=== PATIENT | female | born 1970 | race Caucasian/White ===

== ENCOUNTER 2018-12-01 08:04 | Emergency (ER) | payer SELFPAY ==
[~2018-12-01] VITALS: Ht 154.9 cm; Wt 165.2 kg
[~2018-12-01 08:04] MED LIST: ALBU8.5H2 IH; ESCI5TAB PO; FLUT1DIS2 IH; FURO20TA PO; FURO20TA4 PO; LISI1TAB10 PO; LISI1TAB6 PO; META800T5 PO; NAPR220T29 PO; OMEG-79 PO; OMEG-82 PO; PHEN200T27 PO; PHEN37.555 PO; POTA99TA15 PO; TOPI25CA6 PO; TPR25T PO
--- NOTE | 2018-12-01 08:38 | NUR ---
ATTEMPTED TO BRING PATIENT BACK HOWEVER WAS IN THE BATHROOM
[2018-12-01] MEDS ORDERED: HYDROcodone/APAP 5 MG/325 MG (LORTAB) TAB PO ONE (09:15)
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
--- NOTE | 2018-12-01 09:46 | Diagnostic Imaging Report ---
INDICATION: Left knee pain post fall AP, oblique, and lateral views of the left knee are obtained. No fracture or acute bony abnormality seen. There is degenerative change of the patellofemoral joint with osteophyte formation. There is medial and lateral joint space narrowing with osteophyte formation. IMPRESSION: Osteoarthritic changes of left knee with no acute bony abnormality. Dictated by: Dictated on workstation # [id number]
[2018-12-01] MEDS ORDERED: ACHD5005 PO (10:18)
[2018-12-01 10:25] VITALS: BP 127/72
--- NOTE | 2018-12-01 10:25 | NUR ---
LEFT KNEE WRAPPED IN NASH BANDAGE
[2018-12-01] MEDS ORDERED: FLUC100T PO (10:26)
== END 2018-12-01 10:25 | disposition home or self-care (01) ==
LOC: EDUNIT# 08:04 → ER 08:07
DX: M25.562 Pain in left knee (principal); J45.909 Unspecified asthma, uncomplicated; I10 Essential (primary) hypertension; G40.909 Epilepsy, unspecified, not intractable, without status epilepticus; K21.9 Gastro-esophageal reflux disease without esophagitis; F41.9 Anxiety disorder, unspecified; F32.9 Major depressive disorder, single episode, unspecified; Z87.442 Personal history of urinary calculi; Z77.22 Contact with and (suspected) exposure to environmental tobacco smoke (acute) (chronic); Z88.1 Allergy status to other antibiotic agents; Z82.49 Family history of ischemic heart disease and other diseases of the circulatory system; W01.0XXA Fall on same level from slipping, tripping and stumbling without subsequent striking against object, initial encounter; Y93.01 Activity, walking, marching and hiking
CPT/HCPCS: 73562

== ENCOUNTER 2021-06-01 04:57 | Emergency (ER) | payer SELFPAY ==
[~2021-06-01] VITALS: Ht 155 cm; Wt 172.0 kg
[~2021-06-01 04:57] MED LIST changes: +ACHD5005 PO; +FLUC100T PO
[2021-06-01] MEDS ORDERED: METF-397 PO (05:17)
[2021-06-01] MEDS ORDERED: KETOROLAC 60 MG/2 ML VIAL IM ONE (05:45)
[2021-06-01] MEDS ORDERED: ORPHENADRINE 60 MG/2 ML (NORFLEX) AMP (ED ONLY) IM ONE (05:45)
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
[2021-06-01 05:52] LABS: BILIRUBIN,URINE NEGATIVE (NEGATIVE); CLARITY,URINE SL CLOUDY; COLOR,URINE YELLOW; GLUCOSE, URINE (UA) NEGATIVE (NEGATIVE); KETONES,URINE NEGATIVE (NEGATIVE); LEUKOCYTE ESTERASE ,URINE NEGATIVE (NEGATIVE); NITRITE,URINE POSITIVE (NEGATIVE); PH,URINE 5.5 (5-9); PROTEIN,URINE TRACE (NEGATIVE)
[2021-06-01 06:00] LABS: BACTERIA,URINE MODERATE /HPF; HYALINE CASTS, URINE 0-2 /LPF
[2021-06-01 06:07] LABS: HCG,QUALITATIVE URINE NEGATIVE (NEGATIVE)
[2021-06-01 06:09] LABS: AMPHETAMINE SCREEN, URINE NEGATIVE (NEGATIVE); BARBITURATE SCREEN URINE NEGATIVE (NEGATIVE); BENZODIAZEPINES SCREEN URINE NEGATIVE (NEGATIVE); CANNABINOID SCREEN, URINE NEGATIVE (NEGATIVE); COCAINE SCREEN URINE NEGATIVE (NEGATIVE); METHADONE STAT NEGATIVE (NEGATIVE); METHAMPHETAMINE SCREEN URINE S NEGATIVE (NEGATIVE); OPIATE SCREEN URINE NEGATIVE (NEGATIVE); OXYCODONE STAT NEGATIVE (NEGATIVE); PROPOXYPHENE STAT NEGATIVE (NEGATIVE); TRICYCLIC ANTIDEPRESSANTS SCRE NEGATIVE (NEGATIVE)
--- NOTE | 2021-06-01 06:27 | Diagnostic Imaging Report ---
PROCEDURE: CT thoracic and lumbar spine without contrast. TECHNIQUE: Multiple contiguous axial images were obtained through the thoracic and lumbar spine without the use of intravenous contrast. Sagittal and coronal reformations were then performed. All CT scans use one or more of the following dose optimizing techniques: automated exposure control, MA and/or KvP adjustment based on a patient size and exam type, or iterative reconstruction. INDICATION: Low back pain. Lower rib pain. Fall one week ago. COMPARISON: None. FINDINGS: Examination mildly limited by tube current verses body mass. Normal alignment. Vertebral body heights appear preserved. Moderate degenerative endplate changes at L5-S1. No high-grade spinal canal stenosis is evident on soft tissue windows. No fractures. Visualized pelvis is intact. Moderate degenerative changes in the sacroiliac joints. Visualized paravertebral soft tissues are unremarkable. IMPRESSION: No acute CT findings in the thoracic or lumbar spine. Dictated by: Dictated on workstation # [id number]
--- NOTE | 2021-06-01 06:53 | Diagnostic Imaging Report ---
Clinical indications: Patient complains of lower back and lower rib pain status post fall approximately a week ago from standing position. Patient reports pain worse since 0300. Patient has history of cholecystectomy. Exam: CT exam of the abdomen and pelvis is performed without IV or oral contrast using stone protocol. Coronal and sagittal reformatted images were created. Auto Exposure Controls were utilized during the CT exam to meet ALARA standards for radiation dose reduction. Comparisons: None. Findings: Visualized lung bases are clear. There are degenerative spurs involving both acetabular regions. There are degenerative spurs involving the visualized lower thoracic spine and lumbar spine. There is no acute lumbar spine fracture. There is no fracture in the visualized portions of the lower thoracic spine, sacrum, pelvis, or both hips. The extra-abdominal and extrapelvic soft tissue structures are unremarkable. The liver is enlarged measuring 20 cm in craniocaudal dimension. Otherwise, the liver, spleen, pancreas and adrenal glands are unremarkable. The gallbladder is not visualized. It may be completely contracted versus surgically absent. There are no surgical clips seen in the gallbladder fossa region. Both kidneys are unremarkable with no hydronephrosis, stones, or visible mass on this noncontrasted exam. Bladder is partially fluid-filled and grossly unremarkable as visualized. The uterus and bilateral adnexal structures are unremarkable. There is no intra-abdominal free air or free fluid. There is no intestinal obstruction. The stomach, small bowel, and colon show no significant abnormality. There is no intestinal obstruction. The appendix is unremarkable. There is no lymphadenopathy. IMPRESSION: 1: There is no CT evidence of acute abdominal pelvic process. There are no fractures involving the visualized portions of the ribs, thoracic spine, lumbar spine, pelvis, sacrum, or hips. 2: Hepatomegaly. Dictated by: Dictated on workstation # [id number]
[2021-06-01] MEDS ORDERED: CYCL10TA9 PO (07:12)
[2021-06-01] MEDS ORDERED: SULF1TAB38 PO (07:12)
[2021-06-01 07:19] VITALS: BP 145/78
== END 2021-06-01 07:19 | disposition home or self-care (01) ==
LOC: EDUNIT# 04:57 → ER 05:00
DX: N12 Tubulo-interstitial nephritis, not specified as acute or chronic (principal); J45.909 Unspecified asthma, uncomplicated; G47.30 Sleep apnea, unspecified; I10 Essential (primary) hypertension; E66.01 Morbid (severe) obesity due to excess calories; Z68.45 Body mass index [BMI] 70 or greater, adult
CPT/HCPCS: 72128; 72131; 74176; 80306; 81000; 84703; 87077; 87088; 87186